=== PATIENT | male | born 1980 | race Native Hawaiian/Other Pacific Islander ===

== ENCOUNTER 2020-10-22 11:02 | Outpatient (CLI) | payer BC ==
[2020-10-22 11:40] LABS: PLATELET COUNT 279 K/uL (142-355)
[2020-10-22 11:45] LABS: POTASSIUM 3.9 mmol/L (3.6-5.2); SODIUM 139 mmol/L (136-145)
== END 2020-10-22 19:32 | disposition home or self-care (01) ==
LOC: LAB 11:02
PROVIDERS: ATTEND Nurse Practitioner Family
DX: R07.9 Chest pain, unspecified (principal)
CPT/HCPCS: 80053; 82550; 82553; 84484; 85027; 85379

== ENCOUNTER 2020-10-22 12:20 | Emergency (ER) | payer BC ==
[~2020-10-22] VITALS: Ht 170.2 cm; Wt 97.5 kg
[2020-10-22 14:55] VITALS: BP 144/93; TEMP 98.1
== END 2020-10-22 14:55 | disposition home or self-care (01) ==
LOC: ED 12:20
DX: I10 Essential (primary) hypertension (principal); F17.210 Nicotine dependence, cigarettes, uncomplicated
CPT/HCPCS: 36415; 84484; 93005; 99283

== ENCOUNTER 2020-10-26 11:04 | Outpatient (CLI) | payer BC | END 2020-10-26 21:48 | disposition home or self-care (01) | LOC: US 11:04 | PROVIDERS: ATTEND Nurse Practitioner Family | DX: N17.9 Acute kidney failure, unspecified (principal) ==

== ENCOUNTER 2021-08-30 07:59 | Outpatient (CLI) | payer BC | END 2021-08-30 19:50 | disposition home or self-care (01) | LOC: CT 07:59 | PROVIDERS: ATTEND Nurse Practitioner Family | DX: R10.9 Unspecified abdominal pain (principal) | CPT/HCPCS: Q9963 ==